=== PATIENT | male | born 1990 | race African-American/Black ===

== ENCOUNTER 2019-05-28 00:18 | Emergency (ER) | payer OTHER ==
[~2019-05-28] VITALS: Ht 177.8 cm; Wt 102.0 kg
[2019-05-28 02:09] VITALS: BP 124/82
== END 2019-05-28 02:22 | disposition home or self-care (01) ==
LOC: ER 00:18
DX: S80.212A Abrasion, left knee, initial encounter (principal); S80.211A Abrasion, right knee, initial encounter; F17.200 Nicotine dependence, unspecified, uncomplicated; W05.1XXA Fall from non-moving nonmotorized scooter, initial encounter; Y93.89 Activity, other specified; Y92.9 Unspecified place or not applicable
CPT/HCPCS: 99281